=== PATIENT | male | born 1975 | race Caucasian/White ===

== ENCOUNTER 2017-02-14 04:09 | Observation (INO) ==
[2017-02-14] MEDS ORDERED: 0.9 % Sodium Chloride 1,000 ML IVC ONE ×2 (04:12→08:01)
[2017-02-14] MEDS ORDERED: *HR* FentaNYL (PF) 100 MCG/2 ML VIAL IVP ONE ×2 (04:12→04:20)
--- NOTE | 2017-02-14 04:23 | Emergency Department Note ---
Disposition Clinical Impression: Acute cholecystitis, Abdominal pain Disposition: Admitted As Inpatient Condition: Good Time of Disposition: 06:53 Abdominal Pain HPI - General Chief Complaint: ED Abdominal Pain Stated Complaint: abd pain Time Seen by Provider: 02/14/17 04:12 Source: patient Mode of arrival: ambulatory Limitations: no limitations Nursing Notes Reviewed: Yes Vital Signs Reviewed: Yes - History of Present Illness HPI Narrative: 41-year-old male with no previous medical history arrives [facility] emergency department complaining of severe abdominal pain. The patient states it started 3 days ago and is progressively worsened. The patient 's significant other commits the patient coming emergency department this evening. He is in a severe amount of pain in distress due to the amount of pain. He admits to some nausea and vomiting but denies any diarrhea, constipation, hematochezia, or any other complaints noted. He has never experienced any pain like this in the past. Pt Subjective Complaint: abdominal pain Onset (ago): day(s) (3) Consistency: Worsening Location: epigastric Pain Severity: severe Pain Scale: 10 Quality: stabbing Radiation: epigastric Migration to: no migration Improves with: nothing Worsens with: nothing Associated symptoms: Reports: nausea, vomiting, anorexia. Denies: diarrhea, fever, chills, hematuria Treatments prior to arrival: none - Related Data Allergies Allergy/AdvReac Type Severity Reaction Status Date / Time No Known Allergies Allergy Verified 02/14/17 04:13 All systems ED: reviewed and negative except as stated. Constitutional: Denies: fever, chills, weakness Cardiovascular: Denies: chest pain Respiratory: Denies: dyspnea Gastrointestinal: Reports: abdominal pain, nausea, vomiting Genitourinary: Denies: dysuria Musculoskeletal: Denies: back pain, neck pain, arthralgia, myalgia Neurological: Denies: headache Abdominal Pain PMH - Past Medical History Medical history: Reports: no medical history Male Surgical History: Reports: no surgical history Psychiatric history: Reports: no psych history - Social History Smoking status: Current every day smoker Alcohol use: Reports: occasionally Drug use: Reports: none Physical Exam Bedside ultrasound revealed large amounts of pericholecystic fluid. - General Limitations: no limitations General appearance: alert, in distress (due to pain) - Head Head exam: atraumatic, normocephalic, normal inspection - Eye Eye exam: Present: normal appearance, PERRL, EOMI - ENT ENT exam: normal exam, normal oropharynx, mucous membranes moist - Neck Neck exam: Present: normal inspection, full ROM, trachea midline - Chest Chest inspection: Present: normal inspection, symmetric chest wall rise - Respiratory Respiratory exam: Present: normal lung sounds bilaterally - Cardiovascular Cardiovascular exam: Present: regular rate, normal rhythm, normal heart sounds - Abdominal Exam Abdominal exam: Present: soft, tenderness (Epigastric, RUQ), guarding, heel tap sign, Lam's sign. Absent: rebound, Rovsing's sign, tenderness at McBurney's Point Abdominal tenderness: Present: RUQ, severe - Extremities Exam Extremities exam: Present: normal inspection, full ROM. Absent: tenderness, pedal edema Course - Consultations Consultation #1: Spoke with Dr. Browning in surgery who agreed to come see the patient upon consultation after expression of patient examination. In addition he requested a right upper quadrant ultrasound for measurement of common bile duct. We requested stat gallbladder ultrasound. Time: 05:09 Consultation #2: Spoke to Dr. Browning again and surgery after ultrasound revealed no dilation of the common bile duct. He stated he was see the patient in emergency department. Time: 06:53 Vital Signs Temperature 98 F 02/14/17 04:10 Pulse Rate 67 02/14/17 04:10 Respiratory Rate 20 02/14/17 04:10 Blood Pressure 164/87 02/14/17 04:10 O2 Sat by Pulse Oximetry 99 02/14/17 04:10 Temperature 98.3 F 02/14/17 16:53 Pulse Rate 76 02/14/17 16:53 Respiratory Rate 16 02/14/17 16:53 Blood Pressure 138/88 02/14/17 16:53 O2 Sat by Pulse Oximetry 96 02/14/17 16:53 Oxygen Delivery Oxygen Delivery Room Air Abdominal Pain - Lab Data Result diagrams: 02/14/17 12:49 02/14/17 12:49 Lab Results 02/14/17 02/14/17 02/14/17 Range/Units 04:26 04:26 04:26 WBC 14.2 H (4.3-11.1) K/mcL RBC 5.61 H (4.19-5.50) M/mcL Hgb 16.9 (12.9-16.9) g/dL Hct 49.0 (37.5-50.1) % MCV 87.3 (83.0-100.0) fL MCH 30.1 (28.0-33.3) pg MCHC 34.5 (31.6-35.5) g/dL RDW 12.4 (11.5-14.5) % Plt Count 267 (140-400) K/mcL MPV 9.5 (9.4-12.4) fL Immature Gran % 0.4 (0-4) % Seg Neutrophils % 78.1 % Lymphocytes % 11.2 % Monocytes % 8.3 % Eosinophils % 1.6 % Basophils % 0.4 % Neutrophils # 11.1 H (1.6-8.9) K/mcL Lymphocytes # 1.6 (0.6-4.6) K/mcL Monocytes # 1.2 (0.0-1.3) K/mcL Eosinophils # 0.2 (0.0-0.6) K/mcL Basophils # 0.1 (0.0-0.2) K/mcL Sodium 137 (136-145) mEq/L Potassium 4.2 (3.5-4.5) mEq/L Chloride 101 (98-109) mEq/L Carbon Dioxide 26 (19-29) mEq/L BUN 11 (8-26) mg/dL Creatinine 1.18 (0.72-1.25) mg/dL Est GFR ( Amer) > 60 (> 60) Est GFR (Non-Af Amer) > 60 (> 60) BUN/Creatinine Ratio 9 (6-26) Glucose 154 H (70-99) mg/dL Calculated Osmolality 286 (280-300) Lactic Acid 1.1 (0.5-2.2) mmol/L Calcium 9.7 (8.6-10.8) mg/dL Total Bilirubin 2.0 H (0.2-1.2) mg/dL AST 207 H (5-34) Units/L ALT 161 H (0-55) Units/L Alkaline Phosphatase 106 (38-126) Units/L Serum Total Protein 7.9 (6.0-8.3) g/dL Albumin 3.8 (3.5-5.0) g/dL Globulin 4.1 H (2.4-3.5) g/dL Albumin/Globulin Ratio 0.9 L (1.1-2.2) Lipase 16 (8-78) Units/L - EKG Data EKG attestation: Yes I reviewed and interpreted this EKG. EKG results narrative: Heart rate 63 bpm. CA interval 168 ms. QTC 391 ms. Normal axis. Normal sinus rhythm. No ST elevation or ST depression noted. No acute changes noted. Attestation Statement - Attestation Attestation: Dr. Youngblood note: Is not in conjunction with resident Dr. Blank. Please see his charting documentation Bessman [id number] time with the patient and agree with the patient's treatment and his physician. Patient's had intermittent upper right upper abdominal pain for 2 weeks and became constant and progressively last 2 days. Clinically he has a surgical gallbladder which is confirmed by imaging. Patient be admitted hospital for further care and surgical consultation for likely surgery. Vital signs are stabilized in the ER and antibiotics were provided
[2017-02-14] MEDS ORDERED: Piperacillin/Tazobactam 3.375 GM in Water for inj. (sterile) 20 ML IVP ONE (04:31)
[2017-02-14 04:33] LABS: Basophils # 0.1 K/mcL (0.0-0.2); Basophils % 0.4 %; Eosinophils # 0.2 K/mcL (0.0-0.6); Eosinophils % 1.6 %; Hemoglobin 16.9 g/dL (12.9-16.9); Immature Granulocytes % 0.4 % (0-4); Lymphocytes # 1.6 K/mcL (0.6-4.6); Lymphocytes % 11.2 %; Mean Corpuscular HGB Conc 34.5 g/dL (31.6-35.5); Mean Corpuscular Hemoglobin 30.1 pg (28.0-33.3); Mean Corpuscular Volume 87.3 fL (83.0-100.0); Mean Platelet Volume 9.5 fL (9.4-12.4); Monocytes # 1.2 K/mcL (0.0-1.3); Monocytes % 8.3 %; Neutrophils # 11.1 K/mcL (1.6-8.9); Platelet Count 267 K/mcL (140-400); Red Blood Count 5.61 M/mcL (4.19-5.50); Red Cell Distribution Width 12.4 % (11.5-14.5); Segmented Neutrophils % 78.1 %
[2017-02-14] MEDS ORDERED: *HR* HYDROmorphone (PF) 1 MG/ML SYRINGE IVP ONE ×2 (04:33→06:35)
[2017-02-14 04:50] LABS: Alanine Aminotransferase 161 Units/L (0-55); Albumin 3.8 g/dL (3.5-5.0); Albumin/Globulin Ratio 0.9 (1.1-2.2); Alkaline Phosphatase 106 Units/L (38-126); Aspartate Amino Transferase 207 Units/L (5-34); BUN/Creatinine Ratio 9 (6-26); Blood Urea Nitrogen 11 mg/dL (8-26); Calcium 9.7 mg/dL (8.6-10.8); Carbon Dioxide 26 mEq/L (19-29); Chloride 101 mEq/L (98-109); Globulin 4.1 g/dL (2.4-3.5); Glucose 154 mg/dL (70-99); Lipase 16 Units/L (8-78); Osmolality,Calculated 286 (280-300); Potassium 4.2 mEq/L (3.5-4.5); Sodium 137 mEq/L (136-145); Total Protein 7.9 g/dL (6.0-8.3); eGFR For African Americans > 60 (> 60); eGFR For Non-African Americans > 60 (> 60)
--- NOTE | 2017-02-14 07:55 | General Surg History&Physical ---
Date of Encounter: 02/14/17 Time of Encounter: 07:53 Assessment and Plan (1) Acute cholecystitis Current Visit: Yes Status: Acute 41M with acute cholecystitis with localized peritonitis as evidence by his history of post prandial abdominal pain, elevated white count, cordero's sign, gall bladder wall thickening, pericholecystic fluid and stones on US. NPO IVF abx: zosyn IV dilaudid for pain control admit for observation consent for procedure possible home after surgery The assessment and plan as outlined above was discussed with the patient and/ or family members who expressed understanding and agreement. All questions were answered. (2) Leukocytosis Current Visit: Yes Status: Acute reactive 2/2 acute cholecystitis - abx - OR for lap rosa - expect resolution after procedure The assessment and plan as outlined above was discussed with the patient and/or family members who expressed understanding and agreement. All questions were answered. Qualifiers: Leukocytosis type: unspecified Qualified Code(s): D72.829 - Elevated white blood cell count, unspecified (3) Elevated liver enzymes Current Visit: Yes Status: Acute see above The assessment and plan as outlined above was discussed with the patient and/or family members who expressed understanding and agreement. All questions were answered. History of Present Illness Chief complaint: abdominal pain HPI: Mr. Martinez is a 41 year old male who is otherwise healthy who presents with ~2 month history of RUQ, epigastric abdominal pain. He noticed the pain would occur after eating fatty foods, like machado, but would resolve on its own. Over the past 3 days his pain has come on and has not resolved on its own. The pain is associated with nausea and dry heaving. No recorded temperatures, no chills , chest pain, nor shortness of breath. Due to the severity of the pain, the patient presented for evaluation. Past Med Surg Social Fam HX - Past Medical History Medical history: no medical history Psychiatric history: no psych history - Past Surgical History Surgical History: no surgical history - Social History Smoking Status: Current every day smoker Alcohol use: occasionally Drug use: none - Additional Family History Additional family history: sister with gallbladder disease; otherwise non contributory Medications and Allergies No Known Home Drugs 02/14/17 [History] 3 Allergy/AdvReac Type Severity Reaction Status Date / Time No Known Allergies Allergy Verified 02/14/17 04:13 Review of Systems All systems PM: A 10-system review of systems was performed and is negative for pertinent findings except as documented above in the HPI. General Surgery Exam Initial Vital Signs Temp Pulse Resp BP Pulse Ox 98 F 67 20 164/87 99 02/14/17 04:10 02/14/17 04:10 02/14/17 04:10 02/14/17 04:10 02/14/17 04:10 - General physical appearance well developed, well nourished, no distress - Eyes other (no scleral icterus), normal ocular movement - ENT normocephalic, CN 2-12 grossly intact - Neck no lymphadectomy - Respiratory normal expansion, normal respiratory effort - Cardiovascular Cardiovascular exam: Present: RRR - Abdomen Abdomen general surgery: Present: soft, tender Abdominal Tenderness: Present: RUQ ((+)cordero's sign) - Integumentary Integumentary general surgery: Present: warm and dry, no abnormal pigmentation, other (no jaundice) - Neurologic Present: CN 2-12 grossly intact - Psychiatric Psychiatric general surgery: Present: A&Ox3 Results - Labs 02/14/17 04:26 02/14/17 04:26 Abnormal lab results WBC 14.2 K/mcL (4.3-11.1) H 02/14/17 04:26 RBC 5.61 M/mcL (4.19-5.50) H 02/14/17 04:26 Neutrophils # 11.1 K/mcL (1.6-8.9) H 02/14/17 04:26 Glucose 154 mg/dL (70-99) H 02/14/17 04:26 Total Bilirubin 2.0 mg/dL (0.2-1.2) H 02/14/17 04:26 AST 207 Units/L (5-34) H 02/14/17 04:26 ALT 161 Units/L (0-55) H 02/14/17 04:26 Globulin 4.1 g/dL (2.4-3.5) H 02/14/17 04:26 Albumin/Globulin Ratio 0.9 (1.1-2.2) L 02/14/17 04:26 Diabetes panel 02/14/17 Range/Units 04:26 Sodium 137 (136-145) mEq/L Potassium 4.2 (3.5-4.5) mEq/L Chloride 101 (98-109) mEq/L Carbon Dioxide 26 (19-29) mEq/L BUN 11 (8-26) mg/dL Creatinine 1.18 (0.72-1.25) mg/dL Glucose 154 H (70-99) mg/dL Calcium 9.7 (8.6-10.8) mg/dL AST 207 H (5-34) Units/L ALT 161 H (0-55) Units/L Alkaline Phosphatase 106 (38-126) Units/L Albumin 3.8 (3.5-5.0) g/dL Calcium panel 02/14/17 Range/Units 04:26 Calcium 9.7 (8.6-10.8) mg/dL Albumin 3.8 (3.5-5.0) g/dL Pituitary panel 02/14/17 Range/Units 04:26 Sodium 137 (136-145) mEq/L Potassium 4.2 (3.5-4.5) mEq/L Chloride 101 (98-109) mEq/L Carbon Dioxide 26 (19-29) mEq/L BUN 11 (8-26) mg/dL Creatinine 1.18 (0.72-1.25) mg/dL Glucose 154 H (70-99) mg/dL Calcium 9.7 (8.6-10.8) mg/dL Adrenal panel 02/14/17 Range/Units 04:26 Sodium 137 (136-145) mEq/L Potassium 4.2 (3.5-4.5) mEq/L Chloride 101 (98-109) mEq/L Carbon Dioxide 26 (19-29) mEq/L BUN 11 (8-26) mg/dL Creatinine 1.18 (0.72-1.25) mg/dL Glucose 154 H (70-99) mg/dL Calcium 9.7 (8.6-10.8) mg/dL Total Bilirubin 2.0 H (0.2-1.2) mg/dL AST 207 H (5-34) Units/L ALT 161 H (0-55) Units/L Alkaline Phosphatase 106 (38-126) Units/L Albumin 3.8 (3.5-5.0) g/dL All other labs normal. - Imaging CT scan - abdomen: report reviewed, image reviewed CT scan - pelvis: report reviewed, image reviewed US - abdomen: report reviewed, image reviewed (all imaging reviewed and interpreted by me personally)
[2017-02-14] MEDS ORDERED: Ondansetron ODT 4 MG TAB.RAPDIS SL PRN ×2 (08:01→12:41)
[2017-02-14] MEDS ORDERED: *HR* FentaNYL (PF) 100 MCG/2 ML VIAL ONE (08:05)
[2017-02-14] MEDS ORDERED: *HR* Rocuronium Bromide 50 MG/5 ML VIAL ONE (08:05)
[2017-02-14] MEDS ORDERED: Ondansetron 4 MG/2 ML VIAL ONE (08:05)
[2017-02-14] MEDS ORDERED: Lidocaine -MPF 2% 2 ML VIAL ONE (08:05)
[2017-02-14] MEDS ORDERED: *HR* Succinylcholine 200 MG/10 ML VIAL IVP ONE (08:05)
[2017-02-14] MEDS ORDERED: *HR* Propofol 200 MG/20 ML VIAL IVP ONE (08:06)
[2017-02-14] MEDS ORDERED: *HR* Midazolam HCl 2 MG/2 ML VIAL ONE (08:06)
[2017-02-14] MEDS ORDERED: Lidocaine -MPF 4% 5 ML AMPUL ONE (08:07)
[2017-02-14] MEDS ORDERED: *HR* Promethazine 25 MG/ML VIAL IVP PRN (08:13)
[2017-02-14] MEDS ORDERED: *HR* HYDROmorphone (PF) 1 MG/ML SYRINGE IVP PRN (08:13)
--- NOTE | 2017-02-14 08:28 | Anesthesia Evaluation PreOp ---
Date of Encounter: 02/14/17 Time of Encounter: 08:29 - Past History Planned Operation: lap rosa Cardiac History: Denies any Significant Hx Pulmonary History: Smoker HAIR MIXER History: Denies Any Significant HX Other Medical History: Denies Any Significant HX Anesthesia History: No Prior Anesthetic Complications (denies PSH) Alcohol Use: occasionally Drug use: none Medications and Allergies No Known Home Drugs 02/14/17 [History] 3 Allergy/AdvReac Type Severity Reaction Status Date / Time No Known Allergies Allergy Verified 02/14/17 04:13 - Meds/Allergy Pre-op Review Medications Reviewed: Yes Allergies Reviewed: Yes Beta Blockers on Current Med List: No Anesthesia Results - Labs 02/14/17 04:26 02/14/17 04:26 Anesthesia Exam Selected Entries 02/14/17 04:10 02/14/17 07:29 Temperature 98 F Pulse Rate 100 Blood Pressure 111/68 O2 Sat by Pulse Oximetry 94 Weight: 85kg NPO (# of Hours): >8h - HEENT Pupil (Motor): EOMI Mallampati: I Teeth: Normal Oral Opening: Greater than 3 - HAIR MIXER LOC: Oriented HAIR MIXER Motor: Normal RUE, Normal LUE, Normal RLE, Normal LLE, Normal Face HAIR MIXER Sensory: Normal: RUE, LUE, RLE, LLE, Face - Cardiac Rhythm: Regular Murmur: None - Pulmonary Breath Sounds: bilateral Clear Respiratory Effort: Symmetrical Anesthesia Assess/Plan ASA Score: 2 Modified Payne Scale for Level of Consciousness: Cooperative, oriented, and tranquil Anesthetic Plan: General Monitoring Plan: Standard Monitors Recovery Plan: PACU (discussed GA, agres to proceed)
[2017-02-14] MEDS ORDERED: Dexamethasone 4 MG/ML VIAL ONE (08:47)
[2017-02-14] MEDS ORDERED: Neostigmine Methylsulfate 3 MG/3 ML SYRINGE ONE (09:00)
[2017-02-14] MEDS ORDERED: *HR* HYDROmorphone 2 MG/ML SYRINGE ONE (09:26)
--- NOTE | 2017-02-14 12:06 | Anesthesia Evaluation Post Op ---
Date of Encounter: 02/14/17 Time of Encounter: 12:00 - Vital Signs Vital Signs: Vital Signs/O2 Sat/Glucose, Most Current Temp Pulse Resp BP Pulse Ox 02/14/17 11:50 98.5 F 73 16 152/98 02/14/17 11:27 98.0 F 71 16 151/102 96 02/14/17 11:17 98.0 F 72 16 151/101 96 02/14/17 11:07 80 16 150/91 95 02/14/17 10:57 72 18 155/94 94 02/14/17 10:47 98.1 F 81 16 158/91 97 - Lungs Lungs: Clear Ascult./Percussion - Airway Airway: Non-obstructed - Cardiovascular Regular Rate - Mental Status Mental Status: Alert & Oriented, Answers Appropriately - Pain Pain Scale: 1 - Nausea Vomiting Nausea Vomiting: Not Present - Hydration Hydration: Ice chips - Discharge PostOp Status: Transfer Patient to floor
--- NOTE | 2017-02-14 12:17 | Operative Note ---
Date of procedure: 02/14/17 Pre-op diagnosis: acute cholecystitis Post-op diagnosis: same Procedure: laparoscopic cholecystectomy Anesthesia: GETA Local Anesthetics: 0.5% Sensorcaine HCL SubQ (cc) Surgeon: Oli Russell Cork Tipper: Maryellen Sierra Estimated blood loss (cc): 75 Specimen: gallbladder and contents Condition: stable Disposition: floor Procedure in Detail: The patient was brought into the operating room suite and was placed in the supine position. Mechanical DVT prophylaxis was applied. A time-in was conducted. The patient underwent smooth induction of anesthesia. Preoperative antibiotics were given. The patient was prepped and draped in the usual fashion. A time-out was held identifying the correct patient, pathology, and procedure. Everyone was in agreement and we began the procedure. Incision to Dissection I started by creating a 10mm supraumbilical incision. Via open Elena technique I did enter into the abdomen. Using a Vicryl on a UR-6 needle, I reapproximated, but did not close the fascia in a [id number] fashion. I inserted the 10mm, 30 degree camera, ensured that I did not cause intraabdominal injury upon entry, and quickly identified the gallbladder. I created a 5mm incision in the epigastric region followed by two more 5mm incision, one at the midclavicular line, the last at the anterior axillary line. Using laparoscopic graspers I managed to elevate the gallbladder above the liver. It should be stated that the gallbladder was severely inflamed and friable. I grasp the edge of the gallbladder to retract laterally. Using the [place] instrument as well as the hook-electrocautery, I dissected out the cystic duct and the cystic artery. I excised the posterior tissue to visualize the liver. I was able to clearly visualize the critical view of safety. Again it should be reemphasized that the gallbladder was severely inflamed and friable neurologic adhesions to bluntly dissect prior to gaining the critical view of safety. Critical view of Safety to Excison of the gallbladder I then clipped both structures using metal clips, two on the stay side, one on the specimen side. Using laparoscopic scissors, I cut between the clip on the specimen side and the first clip on the stay side. Then using tension and counter-tension, I used the electrocautery to excise the gallbladder off of the liver bed. Before complete excision, I evaluated the liver bed to ensure there 1.) there was no bleeding, 2. No excessive bile leakage, and 3.) to evaluate my clips. It was significant bleeding. I did use three pieces of a surgiseal to place underneath the liver bed to help control the bleeding in addition to use electrocautery to control bleeding in the liver bed. the clips were all the way across both duct and artery and there was no bile leakage Removal of gallbladder to Closure I switched out the 10mm camera fo the 5mm camera and inserted the endocatch bag into the umbilical port. I placed the specimen into the bag and retrieved it through the umbilical port. The did have to lengthen the incision. I replaced the 5mm camera with the 10mm camera, irrgiated the liver bed and above the liver before suctioning both irrigation fluid and air. I removed the 5mm ports , turned off the insufllation, then removed the 10mm umbilical port. I then close the umbilical fascia using the vicryl suture from the start. All incisions were closed with interrupted 4-0 monocryl and sealed with dermabond. The patient tolerated the procedure well and went back to PACU in stable condition.
[2017-02-14] MEDS ORDERED: D5% in 0.45% NACL w KCl 20 MEQ/1,000 ML MLS IVC SCH (12:41)
[2017-02-14 13:19] LABS: Basophils % 0.2 %; Eosinophils % 0.1 %; Hematocrit 44.9 % (37.5-50.1); Immature Granulocytes % 0.3 % (0-4); Lymphocytes # 0.5 K/mcL (0.6-4.6); Lymphocytes % 5.8 %; Mean Corpuscular HGB Conc 33.9 g/dL (31.6-35.5); Mean Corpuscular Volume 88.6 fL (83.0-100.0); Mean Platelet Volume 9.7 fL (9.4-12.4); Monocytes # 0.5 K/mcL (0.0-1.3); Monocytes % 5.7 %; Neutrophils # 7.6 K/mcL (1.6-8.9); Platelet Count 228 K/mcL (140-400); Red Blood Count 5.07 M/mcL (4.19-5.50); Red Cell Distribution Width 12.6 % (11.5-14.5); Segmented Neutrophils % 87.9 %
[2017-02-14 13:24] LABS: Hemoglobin 15.2 g/dL (12.9-16.9)
[2017-02-14 13:34] LABS: Alanine Aminotransferase 263 Units/L (0-55); Albumin/Globulin Ratio 0.8 (1.1-2.2); Alkaline Phosphatase 121 Units/L (38-126); Aspartate Amino Transferase 213 Units/L (5-34); BUN/Creatinine Ratio 8 (6-26); Blood Urea Nitrogen 8 mg/dL (8-26); Calcium 8.8 mg/dL (8.6-10.8); Carbon Dioxide 28 mEq/L (19-29); Chloride 102 mEq/L (98-109); Globulin 3.7 g/dL (2.4-3.5); Glucose 142 mg/dL (70-99); Osmolality,Calculated 287 (280-300); Potassium 4.6 mEq/L (3.5-4.5); Sodium 138 mEq/L (136-145); Total Protein 6.7 g/dL (6.0-8.3); eGFR For African Americans > 60 (> 60); eGFR For Non-African Americans > 60 (> 60)
[2017-02-14 13:35] LABS: Bilirubin,Total 4.3 mg/dL (0.2-1.2)
[2017-02-14] MEDS: *HR* OxyCODONE/APAP 7.5/325 TABLET PO PRN ×2 (14:21→21:40)
[2017-02-14] MEDS: *HR* Morphine 2 MG/ML SYRINGE IVP PRN ×3 (16:20→23:27)
--- NOTE | 2017-02-14 16:54 | Gastroenterology Consult Note ---
<Balta Cool - Last Filed: 02/14/17 17:02> Date of Encounter: 02/14/17 Time of Encounter: 17:02 - Assessment and plan (1) Hyperbilirubinemia Current Visit: Yes Status: Acute Assessment and plan: Patient's bilirubin continues to increase after cholecystectomy. There is concern for choledocholithiasis. Plan will be for ERCP. Nothing by mouth tonight. (2) Acute cholecystitis Current Visit: Yes Status: Acute Assessment and plan: Postop day 1 status post cholecystectomy. Management as per surgery. (3) Elevated liver enzymes Current Visit: Yes Status: Acute Assessment and plan: Liver enzymes increasing after laparoscopic cholecystectomy. Concern for obstruction in the common bile duct. Plan for ERCP tomorrow morning. - Time Spent With Patient Total time spent is greater than 50% in coordination of care (as documented) at patient's floor/unit and/or counseling patient: GI History of Present Illness - Data of Consult Patient: new to practice Consult date: 02/14/17 Requesting Physician: Oli Russell MD - Consult Narrative Reason for consult: Worsening bilirubin after cholecystectomy History of present illness: Mr. Martinez is a 41 year old male presented with right upper quadrant pain. Patient was found to have acute cholecystitis and underwent laparoscopic cholecystectomy. There were no complications. Patient's liver enzymes and bilirubin continued to climb after cholecystectomy. Consult was placed for concern of choledocholithiasis. Currently patient states he has some pain over the surgical site. He denies nausea vomiting. He reports that he has not passed gas or had a bowel movement. He denies chest pain, shortness of breath. Past Med Surg Social Fam HX - Past Medical History Medical history: no medical history Psychiatric history: no psych history - Past Surgical History Surgical History: no surgical history - Social History Smoking Status: Current every day smoker Packs per day: 1 Smokeless Tobacco Status: (Every once in awhile) Alcohol use: occasionally Drug use: none - Family History Mother Living Status: Age at : 46 Cause of : Fell asleep and never woke up Father Living Status: Age at : 46 Cause of : Lung cancer Hx Family Endocrine Disorder: Yes Review of Systems: Constitutional: Denies fever, chills HEENT: Denies headache, vision changes, neck pain, sore throat, rhinorrhea Heart: Denies chest pain palpitations Lungs: Denies shortness of breath cough Abdomen: Abdominal pain. Denies nausea vomiting diarrhea Back: Denies back pain Kidney: Denies dysuria, hematuria Skin: warm and dry Extremities: Denies swelling, pain Neuro: Denies numbness, and tingling - Constitutional Vitals: Temp Pulse Resp BP Pulse Ox 98.0 F 96 16 137/89 96 02/14/17 13:40 02/14/17 13:40 02/14/17 13:40 02/14/17 13:40 02/14/17 13:40 - Other Additional findings: General: without distress HEENT: Head atraumatic, normocephalic, EOMI, PERRL, neck nontender to palpation , Moist Mucous Membranes, Heart: Regular rate and rhythm with no murmur Lungs: Clear to auscultation bilaterally Abdomen: Soft while tenderness to palpation over surgical incisions. An additional sounds. Surgical incisions intact without drainage. Skin: warm and dry Extremities: Absent pedal edema, Neuro: Alert and oriented 3 Vascular: Pedal and radial pulses 2 out of 4 Results - Labs CBC & Chem 7: 02/14/17 12:49 02/14/17 12:49 Labs: Last Result Calcium 8.8 mg/dL (8.6-10.8) 02/14/17 12:49 Entire Visit Hgb 15.2 g/dL (12.9-16.9) D 02/14/17 12:49 Hct 44.9 % (37.5-50.1) 02/14/17 12:49 Total Bilirubin 4.3 mg/dL (0.2-1.2) H D 02/14/17 12:49 AST 213 Units/L (5-34) H 02/14/17 12:49 ALT 263 Units/L (0-55) H 02/14/17 12:49 Lipase 16 Units/L (8-78) 02/14/17 04:26 Consult Discharge Plan - Plan Referrals: Caitlin Cordero [Primary Care Provider] - <Shelby Nguyen - Last Filed: 02/14/17 18:06> Date of Encounter: 02/14/17 - Time Spent With Patient Total time spent is greater than 50% in coordination of care (as documented) at patient's floor/unit and/or counseling patient: GI History of Present Illness - Data of Consult Requesting Physician: Oli Russell MD - Consult Narrative History of present illness: Mr. Martinez is a 41 year old male - Constitutional Vitals: Temp Pulse Resp BP Pulse Ox 98.3 F 76 16 138/88 96 02/14/17 16:53 02/14/17 16:53 02/14/17 16:53 02/14/17 16:53 02/14/17 16:53 Results - Labs CBC & Chem 7: 02/14/17 12:49 02/14/17 12:49 Labs: Last Result Calcium 8.8 mg/dL (8.6-10.8) 02/14/17 12:49 Entire Visit Hgb 15.2 g/dL (12.9-16.9) D 02/14/17 12:49 Hct 44.9 % (37.5-50.1) 02/14/17 12:49 Total Bilirubin 4.3 mg/dL (0.2-1.2) H D 02/14/17 12:49 AST 213 Units/L (5-34) H 02/14/17 12:49 ALT 263 Units/L (0-55) H 02/14/17 12:49 Lipase 16 Units/L (8-78) 02/14/17 04:26 - Attending Attestation I examined this patient and my medical decision-making was reviewed with the Resident Physician. I agree with the documented findings, disposition and treatment plan as described except to the extent set forth below.
[2017-02-14] MEDS: Piperacillin/Tazobactam 3.375 GM/200 ML BAG IVPB SCH ×2 (17:48→23:33)
--- NOTE | 2017-02-14 19:20 | Emergency Department Note ---
Disposition Clinical Impression: Acute cholecystitis Abdominal pain Qualifiers: Abdominal location: right upper quadrant Qualified Code(s): R10.11 - Right upper quadrant pain Disposition: Admitted As Inpatient Condition: Good Time of Disposition: 09:00 Abdominal Pain HPI - General Chief Complaint: ED Abdominal Pain Stated Complaint: abd pain Time Seen by Provider: 02/14/17 04:12 Source: patient Mode of arrival: ambulatory Nursing Notes Reviewed: Yes Vital Signs Reviewed: Yes - History of Present Illness HPI Narrative: Patient was signed up to me by nighttime physician Dr. Blank and Dr. Youngblood. Patient has been diagnosed with acute cholecystitis and awaiting evaluation by Dr. Russell, surgeon phone specialist. Please see their note for further details. Pt Subjective Complaint: abdominal pain Location: epigastric Pain Severity: severe Pain Scale: 0 Quality: stabbing Migration to: no migration Improves with: nothing Worsens with: nothing Associated symptoms: Reports: nausea, vomiting, anorexia. Denies: diarrhea, fever, chills, hematuria - Related Data Home Medications Medication Instructions Recorded Confirmed No Known Home Drugs 02/14/17 02/14/17 Allergies Allergy/AdvReac Type Severity Reaction Status Date / Time No Known Allergies Allergy Verified 02/14/17 04:13 Constitutional: Denies: fever, chills, weakness Cardiovascular: Denies: chest pain Respiratory: Denies: dyspnea Gastrointestinal: Reports: abdominal pain, nausea, vomiting Genitourinary: Denies: dysuria Musculoskeletal: Denies: back pain, neck pain, arthralgia, myalgia Neurological: Denies: headache Abdominal Pain PMH - Past Medical History Medical history: Reports: no medical history Male Surgical History: Reports: no surgical history Psychiatric history: Reports: no psych history - Social History Smoking status: Current every day smoker Alcohol use: Reports: occasionally Drug use: Reports: none Physical Exam - General Limitations: no limitations General appearance: alert, in distress (due to pain) Course Course Narrative: Patient was signed up to me by nighttime physician Dr. Blank and Dr. Youngblood. Patient has been diagnosed with acute cholecystitis and awaiting evaluation by Dr. Russell, surgeon phone specialist. Please see their note for further details. Smith is a 41-year-old male who presents with abdominal pain. States to start roughly 3 days ago gradually worsened. Pain is mostly located in the right upper quadrant. CT of the abdomen and pelvis as well as the gallbladder ultrasound shows findings consistent with acute cholecystitis. The nighttime physicians have consult it Dr. Russell on-call surgeon for further disposition. Patient is currently awaiting evaluation by Dr. Russell. Currently he appears in no acute distress as he just received pain medication. - Reevaluation(s) Reevaluation #1: Surgeon is currently evaluating the patient at bedside. States he will take him to the operating room later this morning. Will admit to the surgical specialty service. Impression is abdominal pain and acute cholecystitis. - Consultations Consultation #1: Spoke to the on-call surgeon Dr. Russell, will taken to the operating room later this morning. No further orders at this time. Vital Signs Temperature 98 F 02/14/17 04:10 Pulse Rate 67 02/14/17 04:10 Respiratory Rate 20 02/14/17 04:10 Blood Pressure 164/87 02/14/17 04:10 O2 Sat by Pulse Oximetry 99 02/14/17 04:10 Temperature 98.3 F 02/14/17 16:53 Pulse Rate 76 02/14/17 16:53 Respiratory Rate 16 02/14/17 16:53 Blood Pressure 138/88 02/14/17 16:53 O2 Sat by Pulse Oximetry 96 02/14/17 16:53 Oxygen Delivery Oxygen Delivery Room Air Abdominal Pain - Medical Records Medical records reviewed: Yes I reviewed the patient's medical records. - Lab Data Lab results reviewed: Yes I reviewed the patient's lab results. Result diagrams: 02/14/17 12:49 02/14/17 12:49 Lab Results 02/14/17 02/14/17 02/14/17 Range/Units 04:26 04:26 04:26 WBC 14.2 H (4.3-11.1) K/mcL RBC 5.61 H (4.19-5.50) M/mcL Hgb 16.9 (12.9-16.9) g/dL Hct 49.0 (37.5-50.1) % MCV 87.3 (83.0-100.0) fL MCH 30.1 (28.0-33.3) pg MCHC 34.5 (31.6-35.5) g/dL RDW 12.4 (11.5-14.5) % Plt Count 267 (140-400) K/mcL MPV 9.5 (9.4-12.4) fL Immature Gran % 0.4 (0-4) % Seg Neutrophils % 78.1 % Lymphocytes % 11.2 % Monocytes % 8.3 % Eosinophils % 1.6 % Basophils % 0.4 % Neutrophils # 11.1 H (1.6-8.9) K/mcL Lymphocytes # 1.6 (0.6-4.6) K/mcL Monocytes # 1.2 (0.0-1.3) K/mcL Eosinophils # 0.2 (0.0-0.6) K/mcL Basophils # 0.1 (0.0-0.2) K/mcL Sodium 137 (136-145) mEq/L Potassium 4.2 (3.5-4.5) mEq/L Chloride 101 (98-109) mEq/L Carbon Dioxide 26 (19-29) mEq/L BUN 11 (8-26) mg/dL Creatinine 1.18 (0.72-1.25) mg/dL Est GFR ( Amer) > 60 (> 60) Est GFR (Non-Af Amer) > 60 (> 60) BUN/Creatinine Ratio 9 (6-26) Glucose 154 H (70-99) mg/dL Calculated Osmolality 286 (280-300) Lactic Acid 1.1 (0.5-2.2) mmol/L Calcium 9.7 (8.6-10.8) mg/dL Total Bilirubin 2.0 H (0.2-1.2) mg/dL AST 207 H (5-34) Units/L ALT 161 H (0-55) Units/L Alkaline Phosphatase 106 (38-126) Units/L Serum Total Protein 7.9 (6.0-8.3) g/dL Albumin 3.8 (3.5-5.0) g/dL Globulin 4.1 H (2.4-3.5) g/dL Albumin/Globulin Ratio 0.9 L (1.1-2.2) Lipase 16 (8-78) Units/L - Radiology Data Radiology results reviewed: Yes I reviewed the patient's radiology results. Abdomen/Pelvis CT 02/14/17 04:12 IMPRESSION: 1. Acute cholecystitis. 2. Urinary bladder wall thickening may be artifactual and related to lack of distention though cystitis should also be considered. D/ / Giorgi Thomason MD / Giorgi Thomason MD Interpreting Provider: Giorgi Thomason MD Gallbladder Ultrasound 02/14/17 05:07 IMPRESSION: Cholelithiasis and gallbladder wall thickening without a sonographic Lam's sign may indicate chronic cholecystitis rather than acute cholecystitis. However, there are definite inflammatory changes present on CT scan. D/ / Giorgi Thomason MD / Giorgi Thomason MD Interpreting Provider: Giorgi Thomason MD Abdomen Ultrasound 02/14/17 16:02 IMPRESSION: Bowel gas limits evaluation. The common bile duct is nondilated at the level of the chato hepatis. It is not visualized at the level of the pancreatic head. Trace nonspecific fluid along Morison's pouch. D/ / 02/14/2017 19:19:42 Denzel Joshua MD / albertina Interpreting Provider: Denzel Joshua MD
[2017-02-15 05:17] LABS: Basophils % 0.2 %; Eosinophils # 0.1 K/mcL (0.0-0.6); Eosinophils % 1.4 %; Hematocrit 40.4 % (37.5-50.1); Immature Granulocytes % 0.4 % (0-4); Lymphocytes # 1.7 K/mcL (0.6-4.6); Lymphocytes % 19.3 %; Mean Corpuscular HGB Conc 33.7 g/dL (31.6-35.5); Mean Platelet Volume 9.6 fL (9.4-12.4); Monocytes # 0.9 K/mcL (0.0-1.3); Monocytes % 10.4 %; Neutrophils # 5.9 K/mcL (1.6-8.9); Platelet Count 208 K/mcL (140-400); Red Blood Count 4.54 M/mcL (4.19-5.50); Red Cell Distribution Width 12.9 % (11.5-14.5); Segmented Neutrophils % 68.3 %
[2017-02-15 05:22] LABS: Hemoglobin 13.6 g/dL (12.9-16.9)
[2017-02-15 05:30] LABS: Alanine Aminotransferase 178 Units/L (0-55); Albumin 2.7 g/dL (3.5-5.0); Albumin/Globulin Ratio 0.8 (1.1-2.2); Alkaline Phosphatase 103 Units/L (38-126); Aspartate Amino Transferase 99 Units/L (5-34); BUN/Creatinine Ratio 8 (6-26); Blood Urea Nitrogen 7 mg/dL (8-26); Calcium 8.5 mg/dL (8.6-10.8); Carbon Dioxide 28 mEq/L (19-29); Chloride 103 mEq/L (98-109); Globulin 3.5 g/dL (2.4-3.5); Glucose 116 mg/dL (70-99); Osmolality,Calculated 283 (280-300); Potassium 4.3 mEq/L (3.5-4.5); Sodium 137 mEq/L (136-145); Total Protein 6.2 g/dL (6.0-8.3); eGFR For African Americans > 60 (> 60); eGFR For Non-African Americans > 60 (> 60)
[2017-02-15] MEDS: *HR* OxyCODONE/APAP 7.5/325 TABLET PO PRN (06:05)
[2017-02-15] MEDS: *HR* Enoxaparin 40 MG/0.4 ML SYRINGE SQ SCH (06:08)
[2017-02-15] MEDS: Piperacillin/Tazobactam 3.375 GM/200 ML BAG IVPB SCH ×3 (08:28→23:47)
--- NOTE | 2017-02-15 09:28 | General Surgery Progress Note ---
Date of Encounter: 02/15/17 Time of Encounter: 09:25 - Assessment and Plan (1) Acute cholecystitis Current Visit: Yes Status: Acute s/p lap rosa diet after ERCP cont PO pain meds doing well post operatively d/c abx this AM (2) Leukocytosis Current Visit: Yes Status: Acute rsolved after lap rosa Qualifiers: Leukocytosis type: unspecified Qualified Code(s): D72.829 - Elevated white blood cell count, unspecified (3) Elevated liver enzymes Current Visit: Yes Status: Acute t bili twice as high after procedure consult to GI: ERCP today Subjective Patient reports: no new complaints, feels better, still having pain, pain is less, tolerating liquids well Objective Vital Signs - Last 8 Hours Temp Pulse Resp BP Pulse Ox 02/15/17 06:57 98.2 F 91 17 130/74 96 02/15/17 03:50 98.3 F 83 14 130/83 95 Intake and Output 02/14/17 02/15/17 02/15/17 23:59 07:59 15:59 Intake Total 200 / 200 200 / 200 Output Total 375 / 375 0 / 0 Balance -175 / -175 200 / 200 Intake: IV Fluids 200 / 200 200 / 200 Zosyn Premix 3.375 GM/200 ML 3. 200 / 200 200 / 200 375 gm In 200 ml @ 50 mls/hr IVPB Q8HR [facility] Rx#:[id number] Oral 0 / 0 0 / 0 Output: Urine 375 / 375 0 / 0 Other: Meal NPO Blood Glucose* 109 - General physical appearance well developed, well nourished, no distress - Eyes other (scleral icterus), icteric - ENT normocephalic - Respiratory normal expansion, normal respiratory effort - Cardiovascular Cardiovascular exam: Present: RRR - Abdomen Abdomen: Present: soft, tender (principally along incisions) - Incision Incision: Present: clean and dry, intact - Neurologic CN 2-12 grossly intact - Psychiatric oriented to time, oriented to person, oriented to place - Labs 02/15/17 04:44 02/15/17 04:44 Diabetes panel 02/14/17 02/15/17 Range/Units 12:49 04:44 Sodium 138 137 (136-145) mEq/L Potassium 4.6 H 4.3 (3.5-4.5) mEq/L Chloride 102 103 (98-109) mEq/L Carbon Dioxide 28 28 (19-29) mEq/L BUN 8 7 L (8-26) mg/dL Creatinine 0.96 0.85 (0.72-1.25) mg/dL Glucose 142 H 116 H (70-99) mg/dL Calcium 8.8 8.5 L (8.6-10.8) mg/dL AST 213 H 99 H (5-34) Units/L ALT 263 H 178 H (0-55) Units/L Alkaline Phosphatase 121 103 (38-126) Units/L Albumin 3.0 L D 2.7 L (3.5-5.0) g/dL Calcium panel 02/14/17 02/15/17 Range/Units 12:49 04:44 Calcium 8.8 8.5 L (8.6-10.8) mg/dL Albumin 3.0 L D 2.7 L (3.5-5.0) g/dL Pituitary panel 02/14/17 02/15/17 Range/Units 12:49 04:44 Sodium 138 137 (136-145) mEq/L Potassium 4.6 H 4.3 (3.5-4.5) mEq/L Chloride 102 103 (98-109) mEq/L Carbon Dioxide 28 28 (19-29) mEq/L BUN 8 7 L (8-26) mg/dL Creatinine 0.96 0.85 (0.72-1.25) mg/dL Glucose 142 H 116 H (70-99) mg/dL Calcium 8.8 8.5 L (8.6-10.8) mg/dL Adrenal panel 02/14/17 02/15/17 Range/Units 12:49 04:44 Sodium 138 137 (136-145) mEq/L Potassium 4.6 H 4.3 (3.5-4.5) mEq/L Chloride 102 103 (98-109) mEq/L Carbon Dioxide 28 28 (19-29) mEq/L BUN 8 7 L (8-26) mg/dL Creatinine 0.96 0.85 (0.72-1.25) mg/dL Glucose 142 H 116 H (70-99) mg/dL Calcium 8.8 8.5 L (8.6-10.8) mg/dL Total Bilirubin 4.3 H D 4.0 H (0.2-1.2) mg/dL AST 213 H 99 H (5-34) Units/L ALT 263 H 178 H (0-55) Units/L Alkaline Phosphatase 121 103 (38-126) Units/L Albumin 3.0 L D 2.7 L (3.5-5.0) g/dL - Imaging US - abdomen: report reviewed, image reviewed (no dilatation, no retained stone on US) - VTE Documentation of Mechanical Device: Intermittent pneumatic compression device Consult Discharge Plan - Plan Referrals: Caitlin Cordero [Primary Care Provider] -
--- NOTE | 2017-02-15 12:41 | Anesthesia Evaluation PreOp ---
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 Other Medical History: Denies Any Significant HX Anesthesia History: No Prior Anesthetic Complications, Past Anesthesia Alcohol Use: occasionally Drug use: none Medications and Allergies No Known Home Drugs 02/14/17 [History] 3 Allergy/AdvReac Type Severity Reaction Status Date / Time No Known Allergies Allergy Verified 02/14/17 04:13 - Meds/Allergy Pre-op Review Medications Reviewed: Yes Allergies Reviewed: Yes Beta Blockers on Current Med List: No Anesthesia Results - Labs 02/15/17 04:44 02/15/17 04:44 Anesthesia Exam Vital Signs/O2 Sat/Glucose, Most Recent Temp Pulse Resp BP Pulse Ox 98.4 F 88 17 144/91 94 02/15/17 11:57 02/15/17 11:57 02/15/17 11:57 02/15/17 11:57 02/15/17 11:57 Blood Glucose* 104 Height: 5'11''/1.8 m Weight: 187 lbs/85.2 kg NPO (# of Hours): 8 Pain Scale: 3 (abdomen) Pain Scale Used: Numeric (1 - 10) - HEENT Pupil (Motor): EOMI Mallampati: II Teeth: Normal Oral Opening: Greater than 3 - WATER WELL DRILLER LOC: Oriented WATER WELL DRILLER Motor: Normal RUE, Normal LUE, Normal RLE, Normal LLE, Normal Face WATER WELL DRILLER Sensory: Normal: RUE, LUE, RLE, LLE, Face - Cardiac Rhythm: Regular Murmur: None - Pulmonary Breath Sounds: bilateral Clear Respiratory Effort: Symmetrical Anesthesia Assess/Plan ASA Score: 2 Modified Corinne Scale for Level of Consciousness: Cooperative, oriented, and tranquil Anesthetic Plan: General Monitoring Plan: Standard Monitors Recovery Plan: PACU
[2017-02-15] MEDS ORDERED: Ondansetron 4 MG/2 ML VIAL ONE (12:51)
[2017-02-15] MEDS ORDERED: Dexamethasone 4 MG/ML VIAL ONE (12:51)
[2017-02-15] MEDS ORDERED: *HR* FentaNYL (PF) 100 MCG/2 ML VIAL ONE (12:51)
[2017-02-15] MEDS ORDERED: *HR* Succinylcholine 200 MG/10 ML VIAL IVP ONE (12:51)
[2017-02-15] MEDS ORDERED: Lidocaine -MPF 2% 2 ML VIAL ONE (12:51)
[2017-02-15] MEDS ORDERED: *HR* Midazolam HCl 2 MG/2 ML VIAL ONE (12:51)
[2017-02-15] MEDS ORDERED: *HR* Propofol 200 MG/20 ML VIAL IVP ONE (12:52)
[2017-02-15] MEDS ORDERED: *HR* Metoprolol 5 MG/5 ML VIAL IVP ONE (13:23)
[2017-02-15] MEDS ORDERED: Indomethacin 50 MG SUPP.RECT RC ONE (13:27)
[2017-02-15] MEDS ORDERED: *HR* HYDROmorphone (PF) 1 MG/ML SYRINGE IVP PRN (13:41)
[2017-02-15] MEDS ORDERED: Ondansetron 4 MG/2 ML VIAL IVP ONE (13:41)
[2017-02-15] MEDS ORDERED: Ringers Solution, Lactated 1,000 ML IVC SCH (13:45)
--- NOTE | 2017-02-15 14:22 | Anesthesia Evaluation Post Op ---
Date of Encounter: 02/15/17 Time of Encounter: 14:21 - Vital Signs Vital Signs: Vital Signs/O2 Sat, Most Current Temp Pulse Resp BP Pulse Ox 98.7 F 89 16 137/92 94 02/15/17 14:18 02/15/17 14:18 02/15/17 14:18 02/15/17 14:18 02/15/17 14:18 - Lungs Lungs: Clear Ascult./Percussion - Airway Airway: Non-obstructed - Cardiovascular Regular Rate - Mental Status Mental Status: Alert & Oriented, Answers Appropriately - Pain Pain Scale: 4 Pain Scale used: Numeric (1 - 10) - Nausea Vomiting Nausea Vomiting: Not Present - Hydration Hydration: NPO, Has not voided - Discharge PostOp Status: Transfer Patient to floor
[2017-02-15] MEDS: D5% in 0.45% NACL 1,000 ML IVC SCH ×2 (14:49→22:56)
--- NOTE | 2017-02-15 16:44 | Electrocardiograph Report ---
[place] [id number] Test Date: 2017-02-14 Pat Name: Smith Martinez Department: 103 Room: 3A45 Gender: M Business Services Representative: TAB : 1975 Requested By: Harvey Blank Order Number: [id number] Reading MD: Nirav Riggs DO Measurements Intervals [place] Rate: 63 P: 69 [place]: 168 QRS: 57 QRSD: 109 T: 42 QT: 383 QTc: 391 Interpretive Statements Sinus rhythm Electronically Signed On 02-15-2017 16:42:44 EST by Nirav Riggs DO
--- NOTE | 2017-02-15 17:41 | Electrocardiograph Report ---
[place] [id number] Test Date: 2017-02-15 Pat Name: Smith Martinez Department: 115 Room: 3A45 Gender: M [employer] C Developer: CT : 1975 Requested By: Oli Russell Order Number: [id number] Reading MD: Nirav Riggs DO Measurements Intervals [place] Rate: 91 P: 59 MD: 173 QRS: 22 QRSD: 96 T: 29 QT: 345 QTc: 394 Interpretive Statements Sinus rhythm Electronically Signed On 02-15-2017 17:07:35 EST by Nirav Riggs DO
[2017-02-15 19:16] LABS: Alanine Aminotransferase 144 Units/L (0-55); Albumin 2.6 g/dL (3.5-5.0); Albumin/Globulin Ratio 0.8 (1.1-2.2); Alkaline Phosphatase 97 Units/L (38-126); Aspartate Amino Transferase 66 Units/L (5-34); BUN/Creatinine Ratio 9 (6-26); Bilirubin,Total 2.7 mg/dL (0.2-1.2); Blood Urea Nitrogen 7 mg/dL (8-26); Calcium 8.4 mg/dL (8.6-10.8); Carbon Dioxide 26 mEq/L (19-29); Chloride 103 mEq/L (98-109); Globulin 3.2 g/dL (2.4-3.5); Glucose 133 mg/dL (70-99); Osmolality,Calculated 286 (280-300); Sodium 138 mEq/L (136-145); Total Protein 5.8 g/dL (6.0-8.3); eGFR For African Americans > 60 (> 60); eGFR For Non-African Americans > 60 (> 60)
[2017-02-16] MEDS: *HR* Enoxaparin 40 MG/0.4 ML SYRINGE SQ SCH (05:03)
[2017-02-16] MEDS: D5% in 0.45% NACL 1,000 ML IVC SCH (06:16)
[2017-02-16 06:51] LABS: Albumin 2.3 g/dL (3.5-5.0); Albumin/Globulin Ratio 0.7 (1.1-2.2); Bilirubin,Direct 0.9 mg/dL (0.0-0.5); Bilirubin,Indirect 0.5 mg/dL (0.0-1.2); Bilirubin,Total 1.4 mg/dL (0.2-1.2); Globulin 3.3 g/dL (2.4-3.5); Total Protein 5.6 g/dL (6.0-8.3)
[2017-02-16] MEDS: Piperacillin/Tazobactam 3.375 GM/200 ML BAG IVPB SCH (08:12)
--- NOTE | 2017-02-16 09:22 | Discharge Summary ---
Date of Encounter: 02/16/17 Time of Encounter: 09:05 - Discharge Diagnosis (1) Acute cholecystitis Priority: Primary Status: Acute Comments: Successfully treated with laparoscopic cholecystectomy. (2) Bile leak, postoperative Priority: Secondary Status: Acute Comments: Successfully treated with ERCP and stent - Discharge Medications Prescriptions: OxyCODONE/APAP 7.5/325 [Percocet 7.5/325 MG] 1 each PO Q6HR PRN #24 tablet PRN Reason: Pain Home Medications: OxyCODONE/APAP 7.5/325 [Percocet 7.5/325 MG] 1 each PO Q6HR PRN #24 tablet 02/16 [Rx] Allergies/Adverse Reactions: 3 Allergy/AdvReac Type Severity Reaction Status Date / Time No Known Allergies Allergy Verified 02/14/17 04:13 General Surgery Exam Initial Vital Signs Temp Pulse Resp BP Pulse Ox 98 F 67 20 164/87 99 02/14/17 04:10 02/14/17 04:10 02/14/17 04:10 02/14/17 04:10 02/14/17 04:10 - General physical appearance well developed, well nourished, no distress - Respiratory normal expansion, normal respiratory effort, clear to percussion, clear to auscultation - Cardiovascular Cardiovascular exam: Present: RRR, no murmurs/rubs/gallops - Abdomen Abdomen general surgery: Present: bowel sounds present, soft, non tender - Incision Incision: Present: clean and dry, intact - Neurologic Present: CN 2-12 grossly intact, normal coordination, normal sensation - Psychiatric Psychiatric general surgery: Present: appropriate, oriented to person, oriented to place, oriented to time, speech is normal, memory intact Date of admission: 02/14/17 07:51 Primary care physician: PCP NONE Consults: Gastroenterology Discharging clinician: Ruddy Xavier Anticipated date of discharge: 02/16/17 - Patient Status Disposition: Home, Self-Care Functional capacity at discharge: independent ambulation Overall status at discharge: patient is progressing back to baseline - Discharge Instructions Follow Up With: Caitlin Cordero [Family Provider] - Oli Russell MD [Non-Partnered Physician] - - Diet and Activity Activity: increase activity as tolerated Diet: advance to your usual diet - Hospital Course Hospital course: Mr. Martinez is a 41 year old male Presented with acute cholecystitis and subsequently underwent laparoscopic cholecystectomy. His postoperative course was complicated by bile leak. He underwent ERCP and stent placement. He is asymptomatic today on date of discharge. Follow-up with Dr. Russell Time spent discussing smoking cessation with patient: 3 to 10 minutes - Time Spent with Patient Total time spent providing and/or coordinating discharge services: Less than 30 minutes Less than 30 minutes Labs on day of discharge: Labs from last 24 hours 02/16/17 02/15/17 02/15/17 06:07 15:42 11:25 Sodium 138 Potassium 4.0 Chloride 103 Carbon Dioxide 26 BUN 7 L Creatinine 0.82 Est GFR ( Amer) > 60 Est GFR (Non-Af Amer) > 60 BUN/Creatinine Ratio 9 Glucose 133 H POC Glucose 104 H Calculated Osmolality 286 Calcium 8.4 L Total Bilirubin 1.4 H 2.7 H Direct Bilirubin 0.9 H Indirect Bilirubin 0.5 AST 55 H 66 H ALT 122 H 144 H Alkaline Phosphatase 99 97 Serum Total Protein 5.6 L 5.8 L Albumin 2.3 L 2.6 L Globulin 3.3 3.2 Albumin/Globulin Ratio 0.7 L 0.8 L Lipase 43 - Impressions ITS Impressions Abdomen Ultrasound 02/14/17 16:02 IMPRESSION: Bowel gas limits evaluation. The common bile duct is nondilated at the level of the chato hepatis. It is not visualized at the level of the pancreatic head. Trace nonspecific fluid along Morison's pouch. D/ / 02/14/2017 19:19:42 Denzel Joshua MD / albertina Interpreting Provider: Denzel Joshua MD Cath/Invasive Procedure 02/15/17 12:55 IMPRESSION: Intraoperative fluoroscopy provided. Please refer to the procedure report for further details. D/ / Denzel Joshua MD / Denzel Joshua MD Interpreting Provider: Denzel Joshua MD
[2017-02-16 10:35] VITALS: BP 117/69
[2017-02-16] MEDS: *HR* OxyCODONE/APAP 7.5/325 TABLET PO PRN (10:38)
== END 2017-02-16 10:48 | disposition home or self-care (01) ==
LOC: EMEROO 04:09 → 3ANU 04:09
PROVIDERS: ADMIT Surgery; ATTEND Surgery

== ENCOUNTER 2019-04-30 11:02 | Observation (INO) ==
[2019-04-30] MEDS ORDERED: *HR* HYDROmorphone (PF) 1 MG/ML SYRINGE IVP ONE ×2 (11:16→14:13)
[2019-04-30] MEDS ORDERED: Ondansetron 4 MG/2 ML VIAL IVP PRN ×2 (11:17→16:42)
[2019-04-30] MEDS ORDERED: Ondansetron 4 MG/2 ML VIAL ONE (11:24)
[2019-04-30] MEDS ORDERED: 0.9 % Sodium Chloride 1,000 ML IVC ONE (11:25)
[2019-04-30] MEDS ORDERED: Isovue-370 500 ML BOTTLE IVP ONE (11:38)
[2019-04-30 11:42] LABS: Basophils # 0.1 K/mcL (0.0-0.2); Basophils % 0.4 %; Eosinophils # 0.1 K/mcL (0.0-0.6); Eosinophils % 0.4 %; Hematocrit 47.4 % (37.5-50.1); Hemoglobin 16.4 g/dL (12.9-16.9); Immature Granulocytes % 0.6 % (0-4); Lymphocytes # 0.5 K/mcL (0.6-4.6); Lymphocytes % 3.5 %; Mean Corpuscular HGB Conc 34.6 g/dL (31.6-35.5); Mean Corpuscular Hemoglobin 30.6 pg (28.0-33.3); Mean Corpuscular Volume 88.4 fL (83.0-100.0); Mean Platelet Volume 9.6 fL (9.4-12.4); Monocytes # 0.6 K/mcL (0.0-1.3); Monocytes % 4.2 %; Neutrophils # 12.6 K/mcL (1.6-8.9); Platelet Count 241 K/mcL (140-400); Red Blood Count 5.36 M/mcL (4.19-5.50); Segmented Neutrophils % 90.9 %; White Blood Count 13.9 K/mcL (4.3-11.1)
[2019-04-30 12:47] LABS: Alanine Aminotransferase 267 Units/L (7-52); Albumin 4.4 g/dL (3.5-5.7); Albumin/Globulin Ratio 1.4 (1.1-2.2); Alkaline Phosphatase 397 Units/L (34-104); Aspartate Amino Transferase 163 Units/L (13-39); BUN/Creatinine Ratio 13 (6-26); Blood Urea Nitrogen 16 mg/dL (6-20); Calcium 9.8 mg/dL (8.6-10.3); Carbon Dioxide 22 mEq/L (23-29); Chloride 99 mEq/L (98-107); Globulin 3.1 g/dL (2.4-3.5); Glucose 127 mg/dL (70-105); Lipase 15 Units/L (11-82); Osmolality,Calculated 277 (280-300); Potassium 4.3 mEq/L (3.5-5.1); Sodium 132 mEq/L (136-145); Total Protein 7.5 g/dL (6.4-8.9); Troponin I < 0.03 ng/mL (< 0.04); eGFR For African Americans > 60 (> 60); eGFR For Non-African Americans > 60 (> 60)
[2019-04-30 13:59] LABS: Hepatitis B Surface Antigen Nonreactive (Nonreactive)
[2019-04-30] MEDS ORDERED: *HR* HYDROmorphone (PF) 1 MG/ML SYRINGE IM ONE (14:16)
[2019-04-30 14:27] LABS: Hepatitis C Virus Antibody Nonreactive (Nonreactive)
[2019-04-30 14:28] LABS: Hepatitis B Core IgM Nonreactive (Nonreactive)
[2019-04-30 14:29] LABS: Hepatitis A Antibody IgM Nonreactive (Nonreactive)
[2019-04-30] MEDS ORDERED: Piperacillin/Tazobactam 3.375 GM in 0.9 % Sodium Chloride Mini Bag 100 ML IVPB SCH (15:00)
[2019-04-30] MEDS ORDERED: Naloxone 0.4 MG/ML INJ IVP PRN (16:42)
[2019-04-30] MEDS ORDERED: *HR* FentaNYL (PF) 100 MCG/2 ML VIAL ONE ×2 (16:52→17:24)
[2019-04-30] MEDS ORDERED: Acetaminophen IV 1,000 MG/100 ML INFUS..BTL ONE (16:52)
[2019-04-30] MEDS ORDERED: *HR* Propofol 200 MG/20 ML VIAL IVP ONE (16:52)
[2019-04-30] MEDS ORDERED: Famotidine 20 MG/2 ML VIAL ONE (16:53)
[2019-04-30] MEDS ORDERED: Albuterol 2.5 MG/3 ML NEBULIZER IH ONE (16:56)
[2019-04-30] MEDS ORDERED: *HR* OxyCODONE Immed Rel 5 MG TABLET PO PRN (16:56)
[2019-04-30] MEDS ORDERED: *HR* HYDROmorphone (PF) 1 MG/ML SYRINGE IVP PRN ×2 (16:56→17:29)
[2019-04-30] MEDS ORDERED: Albuterol 2.5 MG/3 ML NEBULIZER ONE (16:56)
[2019-04-30] MEDS ORDERED: *HR* Rocuronium Bromide 50 MG/5 ML VIAL ONE (16:59)
[2019-04-30] MEDS ORDERED: Acetaminophen IV 0 MG/0 ML INFUS..BTL ONE (17:17)
[2019-04-30] MEDS ORDERED: *HR* Promethazine 25 MG/ML VIAL IVP PRN (17:29)
[2019-04-30] MEDS ORDERED: Ondansetron 4 MG/2 ML VIAL IVP ONE (17:29)
[2019-04-30] MEDS ORDERED: Ringers Solution, Lactated 1,000 ML ONE (18:27)
[2019-04-30] MEDS: Piperacillin/Tazobactam 3.375 GM in 0.9 % Sodium Chloride Mini Bag 100 ML IVPB SCH (18:30)
[2019-04-30] MEDS: 0.9 % Sodium Chloride 1,000 ML IVC SCH ×2 (20:02→20:03)
[2019-05-01 01:28] LABS: Hematocrit 40.1 % (37.5-50.1); Mean Corpuscular HGB Conc 34.7 g/dL (31.6-35.5); Mean Corpuscular Volume 89.5 fL (83.0-100.0); Platelet Count 188 K/mcL (140-400); Red Blood Count 4.48 M/mcL (4.19-5.50); Red Cell Distribution Width 13.5 % (11.5-14.5); White Blood Count 13.5 K/mcL (4.3-11.1)
[2019-05-01 01:30] LABS: Hemoglobin 13.9 g/dL (12.9-16.9)
[2019-05-01 01:58] LABS: BUN/Creatinine Ratio 11 (6-26); Blood Urea Nitrogen 13 mg/dL (6-20); Calcium 8.6 mg/dL (8.6-10.3); Carbon Dioxide 21 mEq/L (23-29); Chloride 102 mEq/L (98-107); Glucose 278 mg/dL (70-105); Magnesium 1.9 mg/dL (1.6-2.6); Osmolality,Calculated 286 (280-300); Sodium 133 mEq/L (136-145); eGFR For African Americans > 60 (> 60); eGFR For Non-African Americans > 60 (> 60)
[2019-05-01 03:46] LABS: blaKPC Carbapenem-Resist Gene Not Detected (Not Detect)
[2019-05-01 03:47] LABS: Acinetobacter baumannii by PCR Not Detected (Not Detect); Candida albicans by PCR Not Detected (Not Detect); Candida glabrata by PCR Not Detected (Not Detect); Candida krusei by PCR Not Detected (Not Detect); Candida parapsilosis by PCR Not Detected (Not Detect); Candida tropicalis by PCR Not Detected (Not Detect); Enterobacter cloacae Cmplx PCR Not Detected (Not Detect); Enterococcus by PCR Not Detected (Not Detect); Escherichia coli by PCR DETECTED (Not Detect); Klebsiella oxytoca by PCR Not Detected (Not Detect); Klebsiella pneumoniae by PCR Not Detected (Not Detect); Proteus by PCR Not Detected (Not Detect); Pseudomonas aeruginosa by PCR Not Detected (Not Detect); Serratia marcescens by PCR Not Detected (Not Detect); Staphylococcus aureus by PCR Not Detected (Not Detect); Staphylococcus by PCR Not Detected (Not Detect); Streptococcus agalactiae(B)PCR Not Detected (Not Detect); Streptococcus by PCR Not Detected (Not Detect); Streptococcus pneumoniae PCR Not Detected (Not Detect); Streptococcus pyogenes (A) PCR Not Detected (Not Detect)
[2019-05-01] MEDS: Piperacillin/Tazobactam 3.375 GM in 0.9 % Sodium Chloride Mini Bag 100 ML IVPB SCH ×3 (05:14→19:44)
[2019-05-01] MEDS: *HR* Enoxaparin 40 MG/0.4 ML SYRINGE SQ SCH (08:51)
[2019-05-01 15:30] LABS: Albumin 3.8 g/dL (3.5-5.7); Albumin/Globulin Ratio 1.3 (1.1-2.2); Bilirubin,Direct 1.9 mg/dL (0.0-0.2); Bilirubin,Indirect 1.2 mg/dL (0.0-1.0); Bilirubin,Total 3.1 mg/dL (0.3-1.0); Globulin 2.9 g/dL (2.4-3.5); Total Protein 6.7 g/dL (6.4-8.9)
[2019-05-02] MEDS: *HR* Enoxaparin 40 MG/0.4 ML SYRINGE SQ SCH (05:25)
[2019-05-02] MEDS: Piperacillin/Tazobactam 3.375 GM in 0.9 % Sodium Chloride Mini Bag 100 ML IVPB SCH (05:39)
[2019-05-02 06:10] LABS: Hemoglobin 14.3 g/dL (12.9-16.9); Mean Corpuscular HGB Conc 33.3 g/dL (31.6-35.5); Mean Corpuscular Hemoglobin 30.7 pg (28.0-33.3); Mean Corpuscular Volume 92.3 fL (83.0-100.0); Mean Platelet Volume 9.9 fL (9.4-12.4); Platelet Count 211 K/mcL (140-400); Red Blood Count 4.66 M/mcL (4.19-5.50); Red Cell Distribution Width 13.6 % (11.5-14.5); White Blood Count 14.5 K/mcL (4.3-11.1)
[2019-05-02 06:31] LABS: Alanine Aminotransferase 148 Units/L (7-52); Albumin 3.7 g/dL (3.5-5.7); Albumin/Globulin Ratio 1.2 (1.1-2.2); Alkaline Phosphatase 242 Units/L (34-104); Aspartate Amino Transferase 44 Units/L (13-39); BUN/Creatinine Ratio 19 (6-26); Bilirubin,Total 1.3 mg/dL (0.3-1.0); Blood Urea Nitrogen 17 mg/dL (6-20); Carbon Dioxide 24 mEq/L (23-29); Chloride 104 mEq/L (98-107); Globulin 3.1 g/dL (2.4-3.5); Glucose 119 mg/dL (70-105); Osmolality,Calculated 289 (280-300); Potassium 4.1 mEq/L (3.5-5.1); Sodium 138 mEq/L (136-145); Total Protein 6.8 g/dL (6.4-8.9); eGFR For African Americans > 60 (> 60); eGFR For Non-African Americans > 60 (> 60)
[2019-05-02 07:12] VITALS: BP 134/80
[2019-05-02] MEDS ORDERED: levoFLOXacin 750 MG TABLET PO ONE (09:45)
== END 2019-05-02 11:37 | disposition home or self-care (01) ==
LOC: 3ANU 11:02 → EMEROOARM 11:02 → SUATTDRO 16:09 → 3ANU 16:49 → 2NNU 18:34 → 3BNU 05-01 15:06
PROVIDERS: ADMIT Internal Medicine; ATTEND Internal Medicine